=== PATIENT | male | born 1935 | race Caucasian/White ===

== ENCOUNTER 2018-04-14 05:18 | Emergency (ER) | payer MEDICARE ==
[~2018-04-14] VITALS: Ht 167.6 cm; Wt 80.5 kg
[~2018-04-14 05:18] MED LIST: ASPIRIN81 MG PO; ATENOLOL25 MG PO; FLOMAX0.4 M1 PO; HEARTBURN RELIE75 MG PO; LISINOP/HCTZ1 TA2 PO; SIMVASTATIN40 MG PO
[2018-04-14] MEDS ORDERED: PREDNISONE10 MG PO (07:12)
[2018-04-14 07:16] VITALS: BP 117/64
== END 2018-04-14 07:25 | disposition home or self-care (01) ==
LOC: ED 05:18
DX: T78.40XA Allergy, unspecified, initial encounter (principal); I10 Essential (primary) hypertension; X58.XXXA Exposure to other specified factors, initial encounter; Z95.1 Presence of aortocoronary bypass graft

== ENCOUNTER 2018-05-07 05:17 | Emergency (ER) | payer MEDICARE ==
[~2018-05-07] VITALS: Ht 167.6 cm; Wt 175.0 kg
[~2018-05-07 05:17] MED LIST changes: +PREDNISONE10 MG PO
[2018-05-07] MEDS ORDERED: EC ASPIRIN325 M1 PO (05:38)
[2018-05-07] MEDS ORDERED: VITAMIN C500 M1 PO (05:39)
[2018-05-07] MEDS ORDERED: DOCUSATE CAL240 MG PO (05:39)
[2018-05-07] MEDS ORDERED: VITAMIN D-31000 UNI1 PO (05:41)
[2018-05-07] MEDS ORDERED: TYLENOL 500MG TAB PO (05:42)
[2018-05-07] MEDS ORDERED: TURMERIC CURCU500 MG PO (05:49)
[2018-05-07 05:54] LABS: IMMATURE GRANULOCYTES 0.3 % (0.0-5.0); MEAN CELL VOLUME 94.1 fL CALC (80.0-100.0); MEAN CORPUSCULAR HGB 31.8 pG CALC (26.0-32.0); MEAN CORPUSCULAR HGB CONC 33.8 g/L CALC (32.0-36.0); NEUT# 5.47 thou/uL (1.82-7.42); RED BLOOD COUNT 3.55 mill/uL (4.70-6.10); RED CELL DISTRI WIDTH 14.3 % (11.5-15.5)
[2018-05-07 05:55] LABS: HEMATOCRIT 33.4 % (39.0-50.0); HEMOGLOBIN 11.3 g/dl (14.0-18.0)
[2018-05-07 06:02] LABS: BILIRUBIN, TOTAL 0.8 mg/dL (0.0-1.4); CREATININE 1.7 mg/dL (0.7-1.3); POTASSIUM 3.9 mmol/l (3.5-5.1)
[2018-05-07 06:04] LABS: ALBUMIN 3.9 g/dL (3.2-5.0); TOTAL PROTEIN 6.8 g/dL (6.3-8.2)
[2018-05-07 06:14] LABS: ACT PARTIAL THROMBO TIME 26.2 SECONDS (20.0-32.5); D-DIMER 2.38 mg/L (0.19-0.60)
[2018-05-07 08:40] VITALS: BP 164/93
== END 2018-05-07 08:40 | disposition short-term general hospital (02) ==
LOC: ED 05:17
PROVIDERS: Family Medicine
DX: I24.9 Acute ischemic heart disease, unspecified (principal); I10 Essential (primary) hypertension; I25.810 Atherosclerosis of coronary artery bypass graft(s) without angina pectoris; Z95.1 Presence of aortocoronary bypass graft; R07.9 Chest pain, unspecified; R94.31 Abnormal electrocardiogram [ECG] [EKG]
CPT/HCPCS: Q9967

== ENCOUNTER 2019-03-29 17:07 | Emergency (ER) | payer MEDICARE ==
[~2019-03-29] VITALS: Ht 167.6 cm; Wt 81.8 kg
[~2019-03-29 17:07] MED LIST changes: +DOCUSATE CAL240 MG PO; +EC ASPIRIN325 M1 PO; +TURMERIC CURCU500 MG PO; +TYLENOL 500MG TAB PO; +VITAMIN C500 M1 PO; +VITAMIN D-31000 UNI1 PO
[2019-03-29 17:28] LABS: IMMATURE GRANULOCYTES 0.4 % (0.0-5.0); MEAN CELL VOLUME 92.3 fL CALC (80.0-100.0); MEAN CORPUSCULAR HGB 30.5 pG CALC (26.0-32.0); NEUT# 6.14 thou/uL (1.82-7.42); RED BLOOD COUNT 4.95 mill/uL (4.70-6.10); RED CELL DISTRI WIDTH 15.6 % (11.5-15.5)
[2019-03-29 17:30] LABS: HEMATOCRIT 45.7 % (39.0-50.0); HEMOGLOBIN 15.1 g/dl (14.0-18.0)
[2019-03-29 17:46] LABS: ALBUMIN 4.6 g/dL (3.2-5.0); BILIRUBIN, TOTAL 1.1 mg/dL (0.0-1.4); POTASSIUM 4.4 mmol/l (3.5-5.1)
[2019-03-29 17:49] LABS: CREATININE 3.3 mg/dL (0.7-1.3); TOTAL PROTEIN 8.3 g/dL (6.3-8.2)
[2019-03-29 20:19] LABS: PROTHROMBIN TIME 10.4 SECONDS (9.0-12.5)
[2019-03-29 20:55] VITALS: BP 116/72
== END 2019-03-29 20:55 | disposition short-term general hospital (02) ==
LOC: ED 17:07
PROVIDERS: Family Medicine
DX: I25.110 Atherosclerotic heart disease of native coronary artery with unstable angina pectoris (principal); J18.9 Pneumonia, unspecified organism; N17.9 Acute kidney failure, unspecified; I12.9 Hypertensive chronic kidney disease with stage 1 through stage 4 chronic kidney disease, or unspecified chronic kidney disease; N18.9 Chronic kidney disease, unspecified; Z95.1 Presence of aortocoronary bypass graft; Z88.1 Allergy status to other antibiotic agents; Z88.0 Allergy status to penicillin
CPT/HCPCS: J1644

== ENCOUNTER 2019-06-17 | Emergency (ER) | payer MEDICARE ==
[2019-06-17 16:42] LABS: IMMATURE GRANULOCYTES 0.3 % (0.0-5.0); MEAN CELL VOLUME 95.2 fL CALC (80.0-100.0); MEAN CORPUSCULAR HGB 28.4 pG CALC (26.0-32.0); MEAN CORPUSCULAR HGB CONC 29.8 g/L CALC (32.0-36.0); NEUT# 3.99 thou/uL (1.82-7.42); RED BLOOD COUNT 2.29 mill/uL (4.70-6.10); RED CELL DISTRI WIDTH 15.4 % (11.5-15.5)
[2019-06-17 16:48] LABS: HEMATOCRIT 21.8 % (39.0-50.0); HEMOGLOBIN 6.5 g/dl (14.0-18.0)
[2019-06-17 16:58] LABS: ALBUMIN 4.1 g/dL (3.2-5.0); POTASSIUM 4.2 mmol/l (3.5-5.1)
[2019-06-17 17:02] LABS: BILIRUBIN, TOTAL 0.5 mg/dL (0.0-1.4); CREATININE 1.8 mg/dL (0.7-1.3)
[2019-06-17] MEDS ORDERED: FERRAPLUS 90 PO (17:40)
[2019-06-17] MEDS ORDERED: ISOSORB MONO120 MG PO (18:18)
[2019-06-17] MEDS ORDERED: ADULT ASPIRIN R81 MG PO (18:18)
[2019-06-17] MEDS ORDERED: ISOSORB MONO60 M1 PO (18:19)
[2019-06-17 19:37] VITALS: BP 131/72
[2019-06-17 19:58] VITALS: BP 178/70
[2019-06-17 20:19] LABS: URINE BILIRUBIN - DIPSTICK NEGATIVE (NEGATIVE); URINE BLOOD DIPSTICK TRACE-LYSED (NEGATIVE); URINE COLOR YELLOW; URINE GLUCOSE - DIPSTICK NEGATIVE (NEGATIVE); URINE KETONE NEGATIVE (NEGATIVE); URINE LEUK ESTERASE NEGATIVE (NEGATIVE); URINE NITRITE - DIPSTICK NEGATIVE (Negative); URINE PH 5.5 (4.5-8.0); URINE PROTEIN - DIPSTICK NEGATIVE (NEG-TRACE); URINE UROBILINOGEN - DIPSTICK 0.2 E.U./dL (0.2)
== END 2019-06-17 20:01 | disposition short-term general hospital (02) ==
PROVIDERS: Emergency Medicine
PROC: 30233N1 Transfusion of Nonautologous Red Blood Cells into Peripheral Vein, Percutaneous Approach (ICD-10-PCS; principal; 2019-06-17)
DX: K92.2 Gastrointestinal hemorrhage, unspecified (principal); D64.9 Anemia, unspecified; I10 Essential (primary) hypertension; I25.10 Atherosclerotic heart disease of native coronary artery without angina pectoris; Z95.2 Presence of prosthetic heart valve; Z95.0 Presence of cardiac pacemaker; Z95.1 Presence of aortocoronary bypass graft; R06.02 Shortness of breath
CPT/HCPCS: P9016; S0164

== ENCOUNTER 2019-07-10 16:36 | Inpatient (IN) | payer MEDICARE ==
[~2019-07-10] VITALS: Ht 167.6 cm; Wt 78.8 kg
[~2019-07-10 16:36] MED LIST changes: +ADULT ASPIRIN R81 MG PO; +FERRAPLUS 90 PO; +ISOSORB MONO120 MG PO; +ISOSORB MONO60 M1 PO
[2019-07-10 17:56] LABS: IMMATURE GRANULOCYTES 0.3 % (0.0-5.0); MEAN CELL VOLUME 98.6 fL CALC (80.0-100.0); MEAN CORPUSCULAR HGB 28.7 pG CALC (26.0-32.0); MEAN CORPUSCULAR HGB CONC 29.1 g/L CALC (32.0-36.0); NEUT# 4.77 thou/uL (1.82-7.42); RED BLOOD COUNT 3.52 mill/uL (4.70-6.10); RED CELL DISTRI WIDTH 19.7 % (11.5-15.5)
[2019-07-10 17:57] LABS: HEMATOCRIT 34.7 % (39.0-50.0); HEMOGLOBIN 10.1 g/dl (14.0-18.0)
[2019-07-10 18:12] LABS: ALBUMIN 4.1 g/dL (3.2-5.0); BILIRUBIN, TOTAL 0.7 mg/dL (0.0-1.4); CREATININE 1.5 mg/dL (0.7-1.3); POTASSIUM 4.4 mmol/l (3.5-5.1); TOTAL PROTEIN 7.3 g/dL (6.3-8.2)
[2019-07-10 18:26] LABS: PROTHROMBIN TIME 10.7 SECONDS (9.0-12.5)
[2019-07-10 20:12] VITALS: BP 152/89
[2019-07-10 20:18] LABS: URINE BILIRUBIN - DIPSTICK NEGATIVE (NEGATIVE); URINE BLOOD DIPSTICK LARGE (NEGATIVE); URINE COLOR YELLOW; URINE GLUCOSE - DIPSTICK NEGATIVE (NEGATIVE); URINE KETONE NEGATIVE (NEGATIVE); URINE LEUK ESTERASE NEGATIVE (NEGATIVE); URINE NITRITE - DIPSTICK NEGATIVE (Negative); URINE PH 5.5 (4.5-8.0); URINE PROTEIN - DIPSTICK 30 mg/dL (NEG-TRACE); URINE UROBILINOGEN - DIPSTICK 0.2 E.U./dL (0.2)
[2019-07-10 20:26] LABS: URINE RBC TNTC RBC/hpf (0-5); URINE SQUAMOUS EPITHELIAL CELL FEW EPI/hpf (0-FEW)
[2019-07-10 23:35] VITALS: BP 150/82
[2019-07-11 04:00] VITALS: BP 143/82
[2019-07-11 07:24] VITALS: BP 137/73
[2019-07-11 11:07] VITALS: BP 130/76
[2019-07-11 15:58] VITALS: BP 130/72
[2019-07-11 19:10] VITALS: BP 133/79
[2019-07-12 00:12] VITALS: BP 117/64
[2019-07-12 04:54] VITALS: BP 112/68
[2019-07-12 06:12] LABS: HEMATOCRIT 31.9 % (39.0-50.0); HEMOGLOBIN 9.7 g/dl (14.0-18.0); MEAN CELL VOLUME 95.8 fL CALC (80.0-100.0); MEAN CORPUSCULAR HGB 29.1 pG CALC (26.0-32.0); MEAN CORPUSCULAR HGB CONC 30.4 g/L CALC (32.0-36.0); RED BLOOD COUNT 3.33 mill/uL (4.70-6.10); RED CELL DISTRI WIDTH 21.1 % (11.5-15.5)
[2019-07-12 06:28] LABS: CREATININE 1.9 mg/dL (0.7-1.3); MAGNESIUM 2.1 mg/dL (1.6-2.3); POTASSIUM 4.2 mmol/l (3.5-5.1)
[2019-07-12 08:03] VITALS: BP 115/62
[2019-07-12 11:14] VITALS: BP 124/71
[2019-07-12] MEDS ORDERED: LASIX 20 MG TAB20 MG PO (15:19)
[2019-07-12] MEDS ORDERED: MEDDOSEPAK PO (15:19)
[2019-07-12] MEDS ORDERED: LEVAQUIN750 MG PO (15:19)
[2019-07-12 15:22] VITALS: BP 116/67
[2019-07-12] MEDS ORDERED: LEVAQUIN750 M1 PO (16:03)
== END 2019-07-12 16:21 | disposition home or self-care (01) | DRG 291 ==
LOC: ED 16:36 → ED-I 18:46 → ED 18:57 → MS2 18:58
PROVIDERS: Nurse Practitioner Family; ADMIT Internal Medicine; ATTEND Internal Medicine
PROC: 0W993ZX Drainage of Right Pleural Cavity, Percutaneous Approach, Diagnostic (ICD-10-PCS; 2019-07-11)
PROC: 0W9B3ZX Drainage of Left Pleural Cavity, Percutaneous Approach, Diagnostic (ICD-10-PCS; principal; 2019-07-12)
DX: I13.0 Hypertensive heart and chronic kidney disease with heart failure and stage 1 through stage 4 chronic kidney disease, or unspecified chronic kidney disease (principal); J18.9 Pneumonia, unspecified organism; J96.01 Acute respiratory failure with hypoxia; J44.1 Chronic obstructive pulmonary disease with (acute) exacerbation; J91.8 Pleural effusion in other conditions classified elsewhere; J44.0 Chronic obstructive pulmonary disease with (acute) lower respiratory infection; I50.9 Heart failure, unspecified; I25.708 Atherosclerosis of coronary artery bypass graft(s), unspecified, with other forms of angina pectoris; E78.5 Hyperlipidemia, unspecified; N18.3 Chronic kidney disease, stage 3 (moderate); D64.9 Anemia, unspecified; Z95.2 Presence of prosthetic heart valve; Z87.891 Personal history of nicotine dependence; Z95.1 Presence of aortocoronary bypass graft; Z95.5 Presence of coronary angioplasty implant and graft; Z86.73 Personal history of transient ischemic attack (TIA), and cerebral infarction without residual deficits
CPT/HCPCS: G0378; J1956

== ENCOUNTER 2019-07-22 | Emergency (ER) | payer MEDICARE ==
[~2019-07-22] MED LIST changes: +LASIX 20 MG TAB20 MG PO; +LEVAQUIN750 M1 PO; +LEVAQUIN750 MG PO; +MEDDOSEPAK PO
[2019-07-22 14:53] LABS: HEMOGLOBIN 11.6 g/dl (14.0-18.0); IMMATURE GRANULOCYTES 0.4 % (0.0-5.0); MEAN CELL VOLUME 95.5 fL CALC (80.0-100.0); MEAN CORPUSCULAR HGB 29.1 pG CALC (26.0-32.0); MEAN CORPUSCULAR HGB CONC 30.4 g/L CALC (32.0-36.0); NEUT# 3.87 thou/uL (1.82-7.42); RED BLOOD COUNT 3.99 mill/uL (4.70-6.10); RED CELL DISTRI WIDTH 19.1 % (11.5-15.5)
[2019-07-22 15:03] LABS: HEMATOCRIT 38.1 % (39.0-50.0)
[2019-07-22 15:17] LABS: ALBUMIN 3.7 g/dL (3.2-5.0); ALKALINE PHOSPHATASE 69 u/l (38-126); ANION GAP 10 (6-22 (CALC)); BUN 21 mg/dL (8-23); BUN/CREATININE RATIO 16 (12-20 (CALC)); CARBON DIOXIDE 26 mmol/l (22-30); CHLORIDE 108 mmol/l (95-108); CREATININE 1.3 mg/dL (0.7-1.3); GFR 53 ML/MIN (>=60 (CALC)); GFR FOR AFR.AMER. > 60 ML/MIN (>=60 (CALC)); POTASSIUM 4.2 mmol/l (3.5-5.1); SGOT/AST 30 u/l (19-48); SODIUM 140 mmol/l (137-146); TOTAL PROTEIN 6.5 g/dL (6.3-8.2)
[2019-07-22 15:21] LABS: URINE BILIRUBIN - DIPSTICK NEGATIVE (NEGATIVE); URINE BLOOD DIPSTICK MODERATE (NEGATIVE); URINE COLOR YELLOW; URINE GLUCOSE - DIPSTICK NEGATIVE (NEGATIVE); URINE KETONE NEGATIVE (NEGATIVE); URINE LEUK ESTERASE NEGATIVE (NEGATIVE); URINE NITRITE - DIPSTICK NEGATIVE (Negative); URINE PROTEIN - DIPSTICK 30 mg/dL (NEG-TRACE); URINE SPECIFIC GRAVITY 1.025; URINE UROBILINOGEN - DIPSTICK 0.2 E.U./dL (0.2)
[2019-07-22 15:29] LABS: URINE RBC 25-50 RBC/hpf (0-5); URINE SQUAMOUS EPITHELIAL CELL FEW EPI/hpf (0-FEW)
[2019-07-22 15:32] LABS: BILIRUBIN, TOTAL 1.1 mg/dL (0.0-1.4)
[2019-07-22] MEDS ORDERED: LASIX20 MG PO ×2 (15:45)
== END 2019-07-22 16:00 | disposition left against medical advice (07) ==
PROVIDERS: Family Medicine
DX: I11.0 Hypertensive heart disease with heart failure (principal); I50.9 Heart failure, unspecified; Z91.19 Patient's noncompliance with other medical treatment and regimen; Z95.5 Presence of coronary angioplasty implant and graft; Z95.1 Presence of aortocoronary bypass graft

== ENCOUNTER 2019-07-23 | Emergency (ER) | payer MEDICARE ==
[~2019-07-23] MED LIST changes: +LASIX20 MG PO
== END 2019-07-23 15:00 | disposition home or self-care (01) ==
DX: I11.0 Hypertensive heart disease with heart failure (principal); I50.9 Heart failure, unspecified; Z95.1 Presence of aortocoronary bypass graft; Z95.5 Presence of coronary angioplasty implant and graft

== ENCOUNTER 2019-12-21 10:12 | Emergency (ER) | payer MEDICARE ==
[~2019-12-21] VITALS: Ht 167.6 cm; Wt 65.0 kg
[2019-12-21 11:40] LABS: IMMATURE GRANULOCYTES 0.6 % (0.0-5.0); MEAN CORPUSCULAR HGB 22.4 pG CALC (26.0-32.0); MEAN CORPUSCULAR HGB CONC 28.1 g/dL CAL (32.0-36.0); NEUT# 4.82 thou/uL (1.82-7.42); RED BLOOD COUNT 2.23 mill/uL (4.70-6.10); RED CELL DISTRI WIDTH 17.7 % (11.5-15.5)
[2019-12-21 11:46] LABS: HEMATOCRIT 17.8 % (39.0-50.0); MEAN CELL VOLUME 79.8 fL CALC (80.0-100.0)
[2019-12-21 12:03] LABS: INTERNATIONAL NORMALIZED RATIO 1.2 RATIO (0.7-1.3); PROTHROMBIN TIME 11.9 SECONDS (9.0-12.5)
[2019-12-21 13:37] LABS: URINE BILIRUBIN - DIPSTICK NEGATIVE (NEGATIVE); URINE BLOOD DIPSTICK TRACE-INTACT (NEGATIVE); URINE COLOR YELLOW; URINE GLUCOSE - DIPSTICK NEGATIVE (NEGATIVE); URINE KETONE NEGATIVE (NEGATIVE); URINE LEUK ESTERASE NEGATIVE (NEGATIVE); URINE NITRITE - DIPSTICK NEGATIVE (Negative); URINE PROTEIN - DIPSTICK NEGATIVE (NEG-TRACE); URINE SPECIFIC GRAVITY 1.025; URINE UROBILINOGEN - DIPSTICK 0.2 E.U./dL (0.2)
[2019-12-21 15:21] VITALS: BP 130/68
[2019-12-21 15:36] VITALS: BP 129/65
[2019-12-21] MEDS ORDERED: SPIRONOLACTONE25 MG PO (15:36)
[2019-12-21] MEDS ORDERED: PLAVIX75 MG PO (15:37)
[2019-12-21] MEDS ORDERED: ISOSORB MONO30 MG PO (15:37)
[2019-12-21] MEDS ORDERED: FERREX 150150 MG PO (15:39)
[2019-12-21] MEDS ORDERED: PROTONIX40 M2 PO (15:41)
[2019-12-21] MEDS ORDERED: TAMSULOSIN HCL0.4 MG PO (15:42)
[2019-12-21] MEDS ORDERED: ATORVASTATIN CA40 MG PO (15:42)
[2019-12-21 16:00] VITALS: BP 140/75
== END 2019-12-21 16:00 | disposition short-term general hospital (02) ==
LOC: ED 10:12
PROVIDERS: Student in an Organized Health Care Education/Training Program
PROC: 30243N1 Transfusion of Nonautologous Red Blood Cells into Central Vein, Percutaneous Approach (ICD-10-PCS; principal; 2019-12-21)
PROC: 02HV33Z Insertion of Infusion Device into Superior Vena Cava, Percutaneous Approach (ICD-10-PCS; 2019-12-21)
PROC: B518ZZA Fluoroscopy of Superior Vena Cava, Guidance (ICD-10-PCS; 2019-12-21)
DX: D62 Acute posthemorrhagic anemia (principal); K92.2 Gastrointestinal hemorrhage, unspecified; I11.0 Hypertensive heart disease with heart failure; I50.9 Heart failure, unspecified; Z95.1 Presence of aortocoronary bypass graft; Z95.5 Presence of coronary angioplasty implant and graft
CPT/HCPCS: P9016

== ENCOUNTER 2020-01-07 09:48 | Emergency (ER) | payer MEDICARE ==
[~2020-01-07] VITALS: Ht 167.6 cm; Wt 68.1 kg
[~2020-01-07 09:48] MED LIST changes: +ATORVASTATIN CA40 MG PO; +FERREX 150150 MG PO; +ISOSORB MONO30 MG PO; +PLAVIX75 MG PO; +PROTONIX40 M2 PO; +SPIRONOLACTONE25 MG PO; +TAMSULOSIN HCL0.4 MG PO
[2020-01-07 10:43] LABS: HEMATOCRIT 28.6 % (39.0-50.0); HEMOGLOBIN 8.1 g/dl (14.0-18.0); IMMATURE GRANULOCYTES 0.5 % (0.0-5.0); MEAN CELL VOLUME 83.4 fL CALC (80.0-100.0); MEAN CORPUSCULAR HGB 23.6 pG CALC (26.0-32.0); MEAN CORPUSCULAR HGB CONC 28.3 g/dL CAL (32.0-36.0); NEUT# 6.69 thou/uL (1.82-7.42); RED BLOOD COUNT 3.43 mill/uL (4.70-6.10); RED CELL DISTRI WIDTH 19.8 % (11.5-15.5)
[2020-01-07 10:57] LABS: INTERNATIONAL NORMALIZED RATIO 1.2 RATIO (0.7-1.3); PROTHROMBIN TIME 12.1 SECONDS (9.0-12.5)
[2020-01-07 10:59] LABS: BILIRUBIN, TOTAL 1.1 mg/dL (0.0-1.4); CREATININE 2.1 mg/dL (0.7-1.3); POTASSIUM 3.8 mmol/l (3.5-5.1); TOTAL PROTEIN 6.9 g/dL (6.3-8.2)
[2020-01-07 12:49] LABS: URINE BILIRUBIN - DIPSTICK NEGATIVE (NEGATIVE); URINE BLOOD DIPSTICK LARGE (NEGATIVE); URINE COLOR YELLOW; URINE GLUCOSE - DIPSTICK NEGATIVE (NEGATIVE); URINE KETONE NEGATIVE (NEGATIVE); URINE LEUK ESTERASE NEGATIVE (NEGATIVE); URINE NITRITE - DIPSTICK NEGATIVE (Negative); URINE PROTEIN - DIPSTICK NEGATIVE (NEG-TRACE); URINE UROBILINOGEN - DIPSTICK 0.2 E.U./dL (0.2)
[2020-01-07 12:51] VITALS: BP 157/74
[2020-01-07 13:06] LABS: URINE EPITHELIAL CELLS FEW EPI/hpf (0-FEW)
== END 2020-01-07 12:53 | disposition short-term general hospital (02) ==
LOC: ED 09:48
DX: D62 Acute posthemorrhagic anemia (principal); K92.2 Gastrointestinal hemorrhage, unspecified; I11.0 Hypertensive heart disease with heart failure; I50.9 Heart failure, unspecified; E87.2 Acidosis; Z95.1 Presence of aortocoronary bypass graft; Z95.5 Presence of coronary angioplasty implant and graft
CPT/HCPCS: J1956